=== PATIENT | male | born 1995 | race Hispanic/Latino ===

== ENCOUNTER 2018-05-05 21:23 | Emergency (ER) | payer OTHER ==
[~2018-05-05] VITALS: Ht 180.3 cm; Wt 72.7 kg
[2018-05-05 21:23] VITALS: BP 162/77
[2018-05-05] MEDS ORDERED: VIAG100T PO (22:43)
[2018-05-05] MEDS ORDERED: ZOLO100T PO (22:43)
[2018-05-05 22:53] LABS: HEMATOCRIT 44.1 % (42.0-52.0); HEMOGLOBIN 14.7 g/dl (13.5-17.5); MEAN CORPUSCULAR HEMOGLOBIN 26.9 pg (27.0-33.0); MEAN CORPUSCULAR HGB CONC 33.3 g/dl (32.0-36.5); MEAN CORPUSCULAR VOLUME 80.8 fl (80.0-96.0); PLATELET COUNT, AUTOMATED 350 10^3/uL (150-450); RED BLOOD COUNT 5.46 10^6/uL (4.30-6.10); WHITE BLOOD COUNT 7.3 10^3/uL (4.0-10.0)
[2018-05-05 23:03] LABS: AMPHETAMINES LEVEL URINE NEGATIVE (NEGATIVE); BARBITURATES URINE NEGATIVE (NEGATIVE); BENZODIAZEPINES URINE NEGATIVE (NEGATIVE); CANNABINOIDS URINE NEGATIVE (NEGATIVE); COCAINE METABOLITE URINE NEGATIVE (NEGATIVE); METHADONE URINE NEGATIVE (NEGATIVE); OPIATES URINE NEGATIVE (NEGATIVE); PHENCYCLIDINE URINE NEGATIVE (NEGATIVE)
[2018-05-05] MEDS ORDERED: NICOTINE 21MG/24HR 1 EA TRANSDERMAL TD ONE (23:30)
[2018-05-05 23:41] LABS: ACETAMINOPHEN LEVEL < 2.0 UG/ML (10.0-30.0); ALT/SGPT 39 U/L (12-78); BILIRUBIN,DIRECT < 0.1 MG/DL (0.0-0.2); BILIRUBIN,TOTAL 0.3 MG/DL (0.2-1.0); BLOOD UREA NITROGEN 8 MG/DL (7-18); CARBON DIOXIDE LEVEL 25 MEQ/L (21-32); CHLORIDE LEVEL 109 MEQ/L (98-107); CREATININE FOR GFR 0.91 MG/DL (0.70-1.30); ETHYL ALCOHOL (ETHANOL) 0.185 % (0.000-0.010); GLOMERULAR FILTRATION RATE > 60.0 (>60); GLUCOSE, FASTING 102 MG/DL (70-100); POTASSIUM SERUM 4.1 MEQ/L (3.5-5.1); SALICYLATE LEVEL < 1.7 MG/DL (5.0-30.0); SODIUM LEVEL 143 MEQ/L (136-145); THYROID STIMULATING HORMONE 0.892 uIU/ML (0.358-3.740); TOTAL PROTEIN 7.7 GM/DL (6.4-8.2)
== END 2018-05-06 05:26 | disposition home or self-care (01) ==
LOC: M ED 21:23
DX: F10.120 Alcohol abuse with intoxication, uncomplicated (principal); F32.9 Major depressive disorder, single episode, unspecified; Z79.899 Other long term (current) drug therapy; F17.200 Nicotine dependence, unspecified, uncomplicated
CPT/HCPCS: 36415; 80048; 80076; 80307; 84443; 85027; 99284; G0480

== ENCOUNTER 2018-06-09 22:36 | Emergency (ER) | payer OTHER ==
[~2018-06-09] VITALS: Ht 175.3 cm; Wt 101.3 kg
[~2018-06-09 22:36] MED LIST: VIAG100T PO; ZOLO100T PO
[2018-06-09 23:21] LABS: HEMATOCRIT 45.2 % (42.0-52.0); HEMOGLOBIN 14.8 g/dl (13.5-17.5); MEAN CORPUSCULAR HEMOGLOBIN 27.1 pg (27.0-33.0); MEAN CORPUSCULAR HGB CONC 32.7 g/dl (32.0-36.5); MEAN CORPUSCULAR VOLUME 82.8 fl (80.0-96.0); PLATELET COUNT, AUTOMATED 320 10^3/uL (150-450); RED BLOOD COUNT 5.46 10^6/uL (4.30-6.10); WHITE BLOOD COUNT 9.3 10^3/uL (4.0-10.0)
[2018-06-09 23:50] LABS: AMPHETAMINES LEVEL URINE NEGATIVE (NEGATIVE); BARBITURATES URINE NEGATIVE (NEGATIVE); BENZODIAZEPINES URINE NEGATIVE (NEGATIVE); CANNABINOIDS URINE NEGATIVE (NEGATIVE); COCAINE METABOLITE URINE NEGATIVE (NEGATIVE); METHADONE URINE NEGATIVE (NEGATIVE); OPIATES URINE NEGATIVE (NEGATIVE); PHENCYCLIDINE URINE NEGATIVE (NEGATIVE)
[2018-06-10 00:09] LABS: ACETAMINOPHEN LEVEL < 2.0 UG/ML (10.0-30.0); ALT/SGPT 22 U/L (12-78); BILIRUBIN,DIRECT < 0.1 MG/DL (0.0-0.2); BILIRUBIN,TOTAL 0.2 MG/DL (0.2-1.0); BLOOD UREA NITROGEN 11 MG/DL (7-18); CARBON DIOXIDE LEVEL 27 MEQ/L (21-32); CHLORIDE LEVEL 109 MEQ/L (98-107); CREATININE FOR GFR 0.91 MG/DL (0.70-1.30); ETHYL ALCOHOL (ETHANOL) 0.209 % (0.000-0.010); GLOMERULAR FILTRATION RATE > 60.0 (>60); GLUCOSE, FASTING 95 MG/DL (70-100); SALICYLATE LEVEL < 1.7 MG/DL (5.0-30.0); SODIUM LEVEL 145 MEQ/L (136-145); TOTAL PROTEIN 7.8 GM/DL (6.4-8.2)
[2018-06-10 11:41] VITALS: BP 123/68
== END 2018-06-10 11:43 | disposition home or self-care (01) ==
LOC: M ED 22:36
DX: F10.129 Alcohol abuse with intoxication, unspecified (principal); F32.9 Major depressive disorder, single episode, unspecified; Z72.0 Tobacco use; Z79.899 Other long term (current) drug therapy
CPT/HCPCS: 80048; 80076; 80307; 84443; 85027; 99284; G0480

== ENCOUNTER 2021-01-15 09:49 | Emergency (ER) | payer OTHER ==
[~2021-01-15] VITALS: Ht 175.3 cm; Wt 113.2 kg
--- OUTSIDE RECORDS SUMMARY | 2021-01-15 09:55 | CCD ---
Author Author [facility] Organization [facility] Address Unknown Phone Unavailable Support Name Relationship Address Phone [facility] Next Of Kin [address] [place] [address] Unavailable MARIA ELENA LEBLANC Next Of Kin [address] [place] [address] Re-disclosure Warning The records that you are about to access may contain information from federally-assisted alcohol or drug abuse programs. If such information is present, then the following federally mandated warning applies: This information has been disclosed to you from records protected by federal confidentiality rules (42 CFR part 2). The federal rules prohibit you from making any further disclosure of this information unless further disclosure is expressly permitted by the written consent of the person to whom it pertains or as otherwise permitted by 42 CFR part 2. A general authorization for the release of medical or other information is NOT sufficient for this purpose. The Federal rules restrict any use of the information to criminally investigate or prosecute any alcohol or drug abuse patient.The records that you are about to access may contain highly sensitive health information, the redisclosure of which is protected by Article 27-F of the [facility] Public Health law. If you continue you may have access to information: Regarding HIV / AIDS; Provided by facilities licensed or operated by the [facility] Office of Mental Health; or Provided by the [facility] Office for People With Developmental Disabilities. If such information is present, then the following [facility] mandated warning applies: This information has been disclosed to you from confidential records which are protected by state law. State law prohibits you from making any further disclosure of this information without the specific written consent of the person to whom it pertains, or as otherwise permitted by law. Any unauthorized further disclosure in violation of state law may result in a fine or usp sentence or both. A general authorization for the release of medical or other information is NOT sufficient authorization for further disc losure. Immunizations Vaccine Date Status Description Data Source(s) COVID-19 VACCINE Pfizer 04/30/2020 12:00:00 AM EST completed [facility] Vaccine Series Complete: YESThis Data wa s Submitted to [facility] Via [employer]. COVID-19 VACCINE Pfizer 04/09/2020 12:00:00 AM EST completed [facility] Vaccine Series Complete: NOThis Data was Submitted to [facility] Via [employer]. Medications No Information Insurance Providers Payer name Policy type / Coverage type Policy ID Covered green party ID Covered green party's relationship to [place]a Policy [place] Plan Information [employer] [id number] SP [id number] [employer]/ AD O [id number] S [id number] N [employer]AL CLAIMS LEE -O/P [id number] 18 [id number] Problems, Conditions, and Diagnoses No Information Surgeries/Procedures No Information Results ID Date Data Source [id number] 09/12/2020 10:54:00 AM EDT [facility] Name Value Range Interpretation Code Description Data Merissa rce(s) Supporting Document(s) SARS-CoV-2 (COVID-19) Negative [facility] This lab [facility] by [facility] and reported by [facility]. ID Date Data Source [id number] 05/01/2020 09:59:00 AM EST [facility] Name Value Range Interpretation Code Description Data Merissa rce(s) Supporting Document(s) SARS-CoV-2 (COVID-19) Negative [facility] This lab was [facility] and reported by [facility]. ID Date Data Source [id number] 02/04/2020 09:45:00 AM EST [facility] Name Value Range Interpretation Code Description Data Merissa rce(s) Supporting Document(s) SARS-CoV-2 (COVID19) [facility] This lab was ordered by [facility] and reported by [facility]. Procedure Social History No Information
--- NOTE | 2021-01-15 10:37 | REP ---
INDICATION: TRAUMA/DEFORMITY. COMPARISON: None. TECHNIQUE: Four views FINDINGS: There is a transverse fracture of the mid diaphysis of the 5th metacarpal. This is seen with anterior angulation. IMPRESSION: Fracture as described above. <Electronically signed by Jose Barrett > 01/15/21 1871
--- OUTSIDE RECORDS SUMMARY | 2021-01-15 11:59 | CCD ---
Author Author [facility] Organization [facility] Address Unknown Phone Unavailable Support Name Relationship Address Phone [place] [facility] Next Of Kin [address] [place] [address] Unavailable MARIA ELENA LEBLANC Next Of Kin [address] [address] Re-disclosure Warning The records that you are [...] is protected by Article 27-F of the [facility] Public Health law. If you continue you may have access to information: Regarding HIV / AIDS; Provided by facilities licensed or operated by the [facility] Office of Mental Health; or Provided by the [facility] Office for People With Developmental Disabilities. If such information is present, then the following [facility] mandated warning applies: This information has been [...] law may result in a fine or fpc sentence or both. A general authorization for the release of medical or other information is NOT sufficient authorization for further disc losure. Immunizations Vaccine Date Status Description Data Source(s) COVID-19 VACCINE Pfizer 04/30/2020 12:00:00 AM EST completed [facility] Vaccine Series Complete: YESThis Data wa s Submitted to [facility] Via [employer]. COVID-19 VACCINE Pfizer 04/09/2020 12:00:00 AM EST completed [facility] Vaccine Series Complete: NOThis Data was Submitted to [facility] Via [employer]. Medications No Information Insurance Providers Payer name Policy type / Coverage type Policy ID Covered green party ID Covered green party's relationship to astorga Policy [employer] Plan Information [employer] [id number] SP [id number] [employer]/ AD O [id number] S [id number] N [employer] CLAIMS [place] -O/P [id number] 18 [id number] Problems, Conditions, and Diagnoses No Information Surgeries/Procedures No Information Results ID Date Data Source [id number] 09/12/2020 10:54:00 AM EDT [facility] Name Value Range Interpretation Code Description Data Merissa rce(s) Supporting Document(s) SARS-CoV-2 (COVID-19) Negative [facility] This lab was ordered by [facility] and reported by [facility]. ID Date Data Source [id number] 05/01/2020 09:59:00 AM EST [facility] Name Value Range Interpretation Code Description Data Merissa rce(s) Supporting Document(s) SARS-CoV-2 (COVID-19) Negative [facility] This lab was ordered by [facility] and reported by [facility]. ID Date Data Source [id number] 02/04/2020 09:45:00 AM EST [facility] Name Value Range Interpretation Code Description Data Merissa rce(s) Supporting Document(s) SARS-CoV-2 (COVID19) [facility] This lab was ordered by [facility] [facility] and reported by [facility]. Procedure Social History No Information
[2021-01-15] MEDS ORDERED: IBUPROFEN 800 MG TAB PO ONE (12:20)
[2021-01-15] MEDS ORDERED: HYDR-3713 PO (12:54)
[2021-01-15] MEDS ORDERED: IBUP80TA PO (12:54)
[2021-01-15 13:19] VITALS: BP 147/92
--- NOTE | 2021-01-15 13:33 | ER ---
ER CONSULTATION DATE: 01/15/2021 CHIEF COMPLAINT: Right 5th metacarpal shaft fracture. HISTORY OF PRESENT ILLNESS: This patient I was called to consult by Tina in the emergency department at [facility] today at approximately 12:30 p.m. Patient punched a floor a day ago. No concerning features of physical exam. Closed injury. Radiographs reveal a 5th metacarpal midshaft transverse fracture with apex dorsal angulation up to 22 degrees. ASSESSMENT AND PLAN: This 25-year-old man has an isolated midshaft 5th metacarpal fracture within normal radiographic parameters to treat this conservatively which was done. I have asked the qualified medical practitioner to place an ulnar gutter splint in the position of safety wrist in 30 degrees extension, 80 degrees of flexion at the metacarpophalangeal (MCP) joint encompassing the 4th and 5th digits, and followup within 5 days in clinic with myself and to write this on the discharge paper work as well. The QMP understands and had no further questions. DENYS
== END 2021-01-15 13:22 | disposition home or self-care (01) ==
LOC: M ED 09:49
DX: S62.396A Other fracture of fifth metacarpal bone, right hand, initial encounter for closed fracture (principal); W22.8XXA Striking against or struck by other objects, initial encounter; F17.200 Nicotine dependence, unspecified, uncomplicated; Y92.009 Unspecified place in unspecified non-institutional (private) residence as the place of occurrence of the external cause; Y93.9 Activity, unspecified; Y99.9 Unspecified external cause status

== ENCOUNTER → 2021-01-29 | Outpatient (CLI) | payer OTHER ==
[~2021-01-29] MED LIST changes: +HYDR-3713 PO; +IBUP80TA PO
--- NOTE | 2021-01-29 12:01 | REP ---
INDICATION: RT HAND FX. COMPARISON: 01/15/2021 TECHNIQUE: Three views FINDINGS: The previously described transverse fracture involving the mid diaphysis of the 5th metacarpal is again noted and there is evidence of a lesser degree of anterior angulation. No new fractures have developed. IMPRESSION: Improvement as described above. <Electronically signed by Jose Barrett > 01/29/21 2146
== END ==
LOC: M SOG 08:02
PROVIDERS: ATTEND Orthopaedic Surgery Sports Medicine
DX: S62.326D Displaced fracture of shaft of fifth metacarpal bone, right hand, subsequent encounter for fracture with routine healing (principal); W18.30XD Fall on same level, unspecified, subsequent encounter; Y92.009 Unspecified place in unspecified non-institutional (private) residence as the place of occurrence of the external cause

== ENCOUNTER → 2021-03-02 | Outpatient (CLI) | payer OTHER | LOC: M SOG 08:02 | PROVIDERS: ATTEND Orthopaedic Surgery Sports Medicine | DX: S62.326D Displaced fracture of shaft of fifth metacarpal bone, right hand, subsequent encounter for fracture with routine healing (principal); W18.30XD Fall on same level, unspecified, subsequent encounter; Y92.009 Unspecified place in unspecified non-institutional (private) residence as the place of occurrence of the external cause ==

== ENCOUNTER → 2021-09-07 | Outpatient (CLI) | payer BC, OTHER | LOC: M SLEEP 19:12 | PROVIDERS: ATTEND Nurse Practitioner Family | DX: G47.33 Obstructive sleep apnea (adult) (pediatric) (principal) ==

== ENCOUNTER 2024-01-11 16:08 | Emergency (ER) | payer OTHER ==
[~2024-01-11] VITALS: Ht 175.3 cm; Wt 113.4 kg
[2024-01-11] MEDS ORDERED: BUSP15TA47 PO (16:18)
[2024-01-11] MEDS ORDERED: MIRT1TAB15 PO (16:18)
[2024-01-11 17:58] LABS: BASO # 0.1 10^3/uL (0.0-0.2); BASO % 0.6 % (0.0-1.0); EOS # 0.2 10^3/uL (0.0-0.5); EOS % 2.4 % (0.0-3.0); HEMOGLOBIN 15.8 g/dl (13.5-17.5); LYMPH # 2.4 10^3/uL (1.5-5.0); LYMPH % 30.1 % (24.0-44.0); MEAN CORPUSCULAR HEMOGLOBIN 27.6 pg (27.0-33.0); MEAN CORPUSCULAR HGB CONC 33.6 g/dl (32.0-36.5); MONO # 0.7 10^3/uL (0.0-0.8); MONO % 8.3 % (2.0-8.0); NEUTROPHILS # 4.6 10^3/uL (1.5-8.5); NEUTROPHILS % 58.3 % (36.0-66.0); PLATELET COUNT, AUTOMATED 371 10^3/uL (150-450); RED BLOOD COUNT 5.73 10^6/uL (4.30-6.10); WHITE BLOOD COUNT 7.8 10^3/uL (4.0-10.0)
[2024-01-11 18:21] LABS: ALBUMIN 3.9 G/DL (3.2-5.2); ALKALINE PHOSPHATASE 65 U/L (46-116); ALT/SGPT 30 U/L (7.0-40); AST/SGOT 18 U/L (<34); BILIRUBIN,TOTAL 0.6 MG/DL (0.3-1.2); BLOOD UREA NITROGEN 14 MG/DL (9-23); CALCIUM LEVEL 9.7 MG/DL (8.5-10.1); CARBON DIOXIDE LEVEL 28 MMOL/L (20-31); CHLORIDE LEVEL 106 MMOL/L (98-107); CREATININE FOR GFR 0.86 MG/DL (0.70-1.30); GLOMERULAR FILTRATION RATE > 60.0 (>60); GLUCOSE, FASTING 95 MG/DL (60-100); HEPATITIS B SURFACE ANTIBODY POSITIVE (POSITIVE); POTASSIUM SERUM 4.2 MMOL/L (3.5-5.1); SODIUM LEVEL 139 MMOL/L (136-145); TOTAL PROTEIN 7.4 G/DL (5.7-8.2)
[2024-01-11 18:34] LABS: HEPATITIS B SURFACE ANTIGEN NEGATIVE (NEGATIVE)
[2024-01-11 18:46] LABS: HIV 1&2 SCREEN NEGATIVE (NEGATIVE)
[2024-01-11 18:55] LABS: HEPATITIS C VIRUS ABY INDEX 0.02 INDEX (<0.8)
[2024-01-11] MEDS: ACETAMINOPHEN 500 MG TAB PO ONE (21:00)
[2024-01-11] MEDS ORDERED: EXPOSURE KIT-ADULT 7 DAY SUPPLY PO ONE (21:35)
[2024-01-11] MEDS ORDERED: EMTR1TAB16 PO (21:37)
[2024-01-11] MEDS ORDERED: RALT40TA PO (21:37)
[2024-01-11] MEDS ORDERED: ONDA-282 PO (21:37)
[2024-01-11 21:48] VITALS: BP 162/95; TEMP 98.6; O2SAT 100
[2024-01-11] MEDS: EMTRICITABINE/TENOFOVIR 200MG/300MG TABLET PO ONE (22:05)
[2024-01-11] MEDS: RALTEGRAVIR 400 MG TAB (ISENTRESS) PO ONE (22:05)
[2024-01-12] MEDS ORDERED: EMTRICITABINE/TENOFOVIR 200MG/300MG TABLET PO SCH
[2024-01-12] MEDS ORDERED: RALTEGRAVIR 400 MG TAB (ISENTRESS) PO SCH
== END 2024-01-11 22:13 | disposition home or self-care (01) ==
LOC: M ED 16:08
DX: Z77.21 Contact with and (suspected) exposure to potentially hazardous body fluids (principal); S61.231A Puncture wound without foreign body of left index finger without damage to nail, initial encounter; Y92.9 Unspecified place or not applicable; Y93.9 Activity, unspecified; Y99.0 Civilian activity done for income or pay; Z79.1 Long term (current) use of non-steroidal anti-inflammatories (NSAID); Z79.899 Other long term (current) drug therapy